=== PATIENT | male | born 1965 | race Caucasian/White ===

== ENCOUNTER 2016-11-06 09:20 | Outpatient (CLI) | payer BC ==
--- NOTE | 2016-11-06 20:18 | RAD ---
No fracture or dislocation was seen. There was some minor bony spurring around the insertion of ten dons on the greater tubercle. A slight lucency in the intertubecular region on one view is not conf irmed on any other view, so I doubt its significance. There is some minor spurring of the AC joint b ut no widening. No soft tissue calcifications were seen. IMPRESSION: Minor changes listed above, but no acute finding. POS: HOME
== END 2016-11-06 09:21 | disposition home or self-care (01) ==
LOC: BURRAD 09:20
PROVIDERS: ATTEND Family Medicine
DX: M25.511 Pain in right shoulder (principal)

== ENCOUNTER 2016-11-06 09:31 | Outpatient (CLI) | payer BC ==
[2016-11-06 10:17] LABS: #Basophils 0.1 thou/uL (0.0-0.2); #Eosinphils 0.3 thou/uL (0.0-0.7); #Lymphocytes 2.6 thou/uL (1.20-3.40); #Monocytes 0.7 thou/uL (0.11-0.59); #Neutrophils 4.8 thou/uL (1.40-6.50); %Basophils 1.6 % (0.0-1.0); %Eosinophils 3.5 % (0.0-10.0); %Lymphocytes 30.7 % (21.0-51.0); %Neutrophils 56.3 % (42.0-75.0); Hemoglobin 16.2 g/dL (14.0-18.0); Mean Corpuscular HGB CONC 34.2 g/dL (32.0-36.0); Mean Corpuscular Hemoglobin 31.6 pg (27.0-31.0); Mean Corpuscular Volume 92.5 fl (80.0-94.0); Mean Platelet Volume 10.5 fL (7.4-10.4); Platelet Count 192 thou/uL (130-400); RBC Distribution Width 11.1 % (11.5-14.5); Red Blood Cell (RBC) Count 5.13 mill/uL (4.70-6.10); White Blood Cell (WBC) Count 8.6 thou/uL (4.8-10.8)
[2016-11-06 12:17] LABS: ALT (SGPT) 42 U/L (8-55); AST (SGOT) 19 U/L (5-34); Albumin 4.2 g/dL (3.5-5.0); Alkaline Phosphatase 91 U/L (40-150); Anion Gap 14 mmol/L (10-20); BUN (Urea Nitrogen) 19 mg/dL (8.9-20.6); Bilirubin, Total 0.7 mg/dL (0.2-1.2); Calc. Creatinine Clearance 0 mL/min (70-130); Calcium 9.1 mg/dL (7.8-10.44); Carbon Dioxide 22 mmol/L (22-29); Cardiac Risk 4.1 (Less than 4.5); Chloride 108 mmol/L (98-107); Cholesterol 143 mg/dl (< 200 Desired); Estimated GFR-MDRD 72; Globulin 2.4 g/dL (2.4-3.5); Glucose 145 mg/dL (70-105); HDL Cholesterol 35 mg/dL (>60 Neg Risk); LDL Cholesterol, Calculated 83 mg/dL; Potassium 4.2 mmol/L (3.5-5.1); Protein, Total 6.6 g/dL (6.0-8.3); Sodium 140 mmol/L (136-145); Triglycerides 127 mg/dL (Less than 150)
[2016-11-06 12:23] LABS: PSA-Asymptomatic (SCREENING) 1.36 ng/mL (0-4.0); Thyroid Stimulating Hormone 1.4504 uIU/mL (0.35-4.94)
[2016-11-06 12:42] LABS: Hemoglobin A1c 5.8 % (4.0-6.0)
[2016-11-06 19:07] LABS: Microalbumin Urine Less than 1.0 mg/dL (0.5-50.0); Microalbumin/Creat Ratio 15.3 mg/g (Less than 30)
== END 2016-11-06 09:32 | disposition home or self-care (01) ==
LOC: HPCALD 09:31
PROVIDERS: ATTEND Family Medicine
DX: Z12.5 Encounter for screening for malignant neoplasm of prostate (principal); E78.2 Mixed hyperlipidemia; E11.9 Type 2 diabetes mellitus without complications
CPT/HCPCS: 36415; 80053; 80061; 82043; 83036; 84443; 85025; G0103

== ENCOUNTER 2021-08-31 09:54 | Outpatient (CLI) | payer BC | END 2021-08-31 09:55 | disposition home or self-care (01) | LOC: BURCT 09:54 | PROVIDERS: ATTEND Family Medicine | DX: R31.9 Hematuria, unspecified (principal); N20.0 Calculus of kidney; N32.89 Other specified disorders of bladder; R93.422 Abnormal radiologic findings on diagnostic imaging of left kidney; Z90.49 Acquired absence of other specified parts of digestive tract | CPT/HCPCS: 74176 ==

== ENCOUNTER 2023-10-23 17:16 | Emergency (ER) | payer BC ==
[2023-10-23] MEDS ORDERED: Acetaminophen 500 MG TAB ONE (17:29)
[2023-10-23] MEDS ORDERED: Lidocaine 4% Patch ONE (19:00)
== END 2023-10-23 19:37 | disposition home or self-care (01) ==
LOC: BURERS 17:16
DX: S16.1XXA Strain of muscle, fascia and tendon at neck level, initial encounter (principal); F07.81 Postconcussional syndrome; E11.9 Type 2 diabetes mellitus without complications; I10 Essential (primary) hypertension; E78.5 Hyperlipidemia, unspecified; L30.9 Dermatitis, unspecified; M06.9 Rheumatoid arthritis, unspecified; Z79.84 Long term (current) use of oral hypoglycemic drugs
CPT/HCPCS: 70450; 72125